=== PATIENT | male | born 1955 | race Caucasian/White ===

== ENCOUNTER 2017-08-29 06:30 | Inpatient (IN) | payer OTHER ==
[~2017-08-29] VITALS: Ht 167.6 cm; Wt 162.4 kg
[2017-08-29] VITALS (23 sets, daily range): BP systolic 81–173; BP diastolic 30–88
--- NOTE | 2017-08-29 06:30 | NUR ---
62Y/M PT. BIBA SOB/ ALTERED MENTAL STATUS X 0600 TODAY UPON ARRIVAL TO DIALYSIS CENTER THIS AM. PMH: ESRD,HTN, COPD, ANEMIA, DM. PT.RESPONDS TO VERBAL, EYE OPEN, UNABLE TO AMBULATE. GCS 9. RESPIRATIONS ON NON-REBREATHING O2 15 LPM, LABORED AND SHALLOW WITH ASSESSORY MUSCLE BREATHING, O2 SAT 92%, RR 32. BL LUNG COARSE. SKIN PALE, DIAPHORETIC. ABDOMEN SOFT, NON TENDER. ON F/C, URINE CLOUDY. VS, BP ELEVATED, DR. METZGER AT BED SIDE EVALUATING PT.
--- NOTE | 2017-08-29 06:30 | NUR ---
PT.HUGO TO ER BED 10
[2017-08-29 06:54] LABS: BASOPHILS # (AUTO) 0.1 K/uL (0.00-0.22); BASOPHILS % (AUTO) 0.6 % (0.0-2.0); EOSINOPHILS # (AUTO) 0.5 K/uL (0-0.4); HEMATOCRIT 27.5 % (36-52); HEMOGLOBIN 8.3 g/dL (12.0-18.0); LYMPHOCYTES # (AUTO) 2.2 K/uL (2.0-11.5); LYMPHOCYTES % (AUTO) 18.5 % (20.5-51.1); MEAN CORPUSCULAR HEMOGLOBIN 29 pg (27-31); MEAN CORPUSCULAR HGB CONC 30 g/dL (33-37); MEAN CORPUSCULAR VOLUME 95.8 fL (80-94); MONOCYTES # (AUTO) 0.5 K/uL (0.8-1.0); MONOCYTES % (AUTO) 4.4 % (1.7-9.3); NEUTROPHILS # (AUTO) 8.8 K/uL (1.8-7.7); NEUTROPHILS % (AUTO) 72.5 % (42.2-75.2); PLATELET COUNT (AUTO) 244 K/uL (140-450); RED BLOOD CELL COUNT(AUTO) 2.87 MIL/uL (4.20-6.10); RED CELL DISTRIBUTION WIDTH 17.9 % (11.6-13.7); WHITE BLOOD COUNT (AUTO) 12.1 K/uL (4.8-10.8)
--- NOTE | 2017-08-29 06:55 | NUR ---
ETOMIDATE 30 MG IVP PER ORDER
--- NOTE | 2017-08-29 06:57 | NUR ---
SUCCINYL 200 MG IVP PER ORDER
--- NOTE | 2017-08-29 06:58 | NUR ---
INTUBATED PT. ETT NO 8.0, DEPTH 22, BL LUNG EQUAL. RT. AT BEDSIDE CONNECT TO [employer] VENTILATOR.
[2017-08-29 07:11] LABS: PROTHROMBIN TIME 10.6 secs (10.8-13.4)
[2017-08-29 07:13] LABS: ALBUMIN 3.9 g/dL (3.4-5.0); ANION GAP 13.9 (8-16); CARBON DIOXIDE 35.1 mmol/L (21-32); TOTAL BILIRUBIN 0.5 mg/dL (0.0-1.0)
[2017-08-29] MEDS ORDERED: PROPOFOL 1000 MG/100 ML PREMIX 100 ML IV ONE (07:15)
[2017-08-29 07:16] LABS: CREATININE 10.6 mg/dL (0.7-1.3)
--- NOTE | 2017-08-29 07:20 | NUR ---
REPORT GIVEN TO JENNIFER DSOUZA. PT. STABLE AT THIS TIME.
[2017-08-29] MEDS ORDERED: NACL 0.9% 500 ML IV ONE (07:35)
[2017-08-29] MEDS ORDERED: PIPERACILLIN/TAZOBACTAM 3.375 GM in DEXTROSE 5% 50 ML IV ONE (07:35)
[2017-08-29] MEDS ORDERED: LEVOFLOXACIN 500 MG/D5W PREMIX 100 ML IV ONE (07:35)
--- NOTE | 2017-08-29 08:00 | NUR ---
[facility] ENTRY" REPORT RECEIVED BY JENNIFER ARAIZA . PT WAS ALREADY INTUBATED, RT AT BEDSIDE, R AC IV NOTED TO BE INFILTRATED, SKIN PINK AND WARM TO TOUCH, LS: CRACKLES BILATERALLY, JAYCE: EQUAL ROUND REACTIVE 2MM .NG TUBE INSERTED TO R NARE, PLACEMENT CONFIRMED BY 2 RN'S BY AUSCULTATION AND GASTRIC CONTENT OUTPUT. LAGOS CATHETER CHANGED AND URINE COLLECTED AND SENT. NEW IV ESTABLISHED R CHEST 22 G. PT. ON MONITOR W/ NSR W/ 1ST DEGREE AV BLOCK . L UPPER ARM SHUNT, POSITIVE BRUIT AND THRILL TO SHUNT, UPON REPORT IT WAS SAID THAT DIALYSIS WAS NOT GIVEN TODAY . ER MD AWARE. SAFETY PRECAUTIONS INITIATED, WILL CONTINUE TO MONITOR.
--- NOTE | 2017-08-29 08:00 | NUR ---
PER RT VENTILATION SETTING ARE THE FOLLOWING: PT. INTUBATED W/ CARESCAPE #8 AND 26CM LIP LINE, TIDAL VOLUME : 550, FI02: 50%, RATE : 12 , PEEP: 5. BILATERAL LS AUSCULTATED, PT. SAT: 99%, SYMETRICAL CHEST RISE AND FALL, SKIN IS PINK WARM TO TOUCH.
--- NOTE | 2017-08-29 08:10 | NUR ---
PROPOFOL INCREASED TO 10MCG/KG/MIN, PT FIGHTING VENT AND MOVING ARMS AND LEGS.
--- NOTE | 2017-08-29 08:15 | NUR ---
# 16 FR Marx catheter with ml utilizing sterile technique. Immediate return of ml urine noted. Bedside drainage bag placed below level of bladder. Urine sample collected and sent to lab. Pt tolerated procedure .
[2017-08-29] MEDS ORDERED: PIPERACILLIN/TAZOBACTAM 3.375 GM VIAL IV ONE (08:35)
[2017-08-29 08:42] LABS: APPEARANCE,URINE TURBID (CLEAR); BILIRUBIN,URINE NEGATIVE (NEGATIVE); BLOOD, URINE 2+ (NEGATIVE); COLOR,URINE YELLOW (YELLOW); LEUKOCYTE ESTERASE ,URINE 3+ (NEGATIVE); NITRITE, URINE NEGATIVE (NEGATIVE); UGLUCOSE NEGATIVE (NEGATIVE)
[2017-08-29 08:45] LABS: RBC,URINE 0-5 (RARE) /HPF (0-5)
[2017-08-29 08:46] LABS: WBC,URINE 20-60 /HPF (0-5)
--- NOTE | 2017-08-29 09:10 | NUR ---
PT. IN ROOM RESTING , RR EVEN AND UNLABORED, BED IN LOWEST POSITION. BED RAILS X 2 . WILL CONTINUE TO MONITOR.
--- NOTE | 2017-08-29 09:27 | NUR ---
0700 RECIVED PT FROM EMT BEING BAGGED AT 100% NRB PT SHORT OF BREATH ER DECIDED TO INTUBATE PT INTUBATED WITH 8.O ETT 24 AT THE GUM LINE CHEST X RAY DONE ETT PUSHED IN TO 26 DR BUSTOS AWARE BREATH SOUNDS PRESENT BILAT FAIRLY CLEAR PT PLACED ON VENT WITH SETTINGS CHARTED ABG DRAWN AND SHOWN TO DR BUSTOS NO VENT CHANGES ORDERED SPUTUNM OBTAINED AND SENT TO LAB VENT PLUGGED INTO RED OUTLER AMBU BAG AT BEDSIDE WILL CONTINUE TO MONITOR PT ON VENT Addendum: 08/29/17 at 0941 by Pj Shelton RT RECIVED PT AT 0635 PLACED ON VENT AT 0700
--- NOTE | 2017-08-29 09:30 | NUR ---
PROPOFOL INCREASED TO 15MCG/KG/MIN, PT FIGHTING VENT AND MOVING ARMS AND LEGS.
[2017-08-29] MEDS ORDERED: NACL 0.9% 1,000 ML IV SCH (09:36)
[2017-08-29] MEDS ORDERED: ACETAMINOPHEN 325 MG TAB PO PRN (09:40)
[2017-08-29] MEDS ORDERED: ONDANSETRON 4 MG/2 ML VIAL IVP PRN (09:40)
--- NOTE | 2017-08-29 09:45 | NUR ---
PROPOFOL INCREASED TO 20MCG/KG/MIN, PT FIGHTING VENT AND MOVING ARMS AND LEGS.
--- NOTE | 2017-08-29 10:00 | NUR ---
PROPOFOL INCREASED TO 25MCG/KG/MIN, PT FIGHTING VENT AND MOVING ARMS AND LEGS.
--- NOTE | 2017-08-29 10:15 | NUR ---
PROPOFOL INCREASED TO 30MCG/KG/MIN, PT FIGHTING VENT AND MOVING ARMS AND LEGS.
--- NOTE | 2017-08-29 10:32 | NUR ---
Patient will be admitted to care of DR. KOVACS . Admited to ICU . Will go to room #5 . Belongings list completed. Report to JENNIFER MARIANO .
--- NOTE | 2017-08-29 10:33 | NUR ---
pt transfered to icu via ambu bag then placed back on vent with settings as charted no ill effects noted
--- NOTE | 2017-08-29 10:35 | NUR ---
PATIENT WAS TRANSFERRED FROM ED VIA GURNEY AND RECEIVED BEDSIDE REPORT FROM JENNIFER WHITE. PATIENT IS NONRESPONSIVE BUT AROUSE TO DEEP STIMULI AT THIS TIME. SKIN COOL TO TOUCH AND PALE NOTED. BILATERAL UPPER EXTREMITY NON PITTING EDEMA. ETT TO VENT AND SETTING AT FIO2 50, TV 550, RATE 12, PEEP 5. RT AT BEDSIDE. NGT IN PLACED TO RT NARE. LAGOS CATHETER DRAINING CLOUDY LIGHT ANUSHA COLOR URINE WITH SEDIMENT NOTED. PERIPHERAL IV LINE ON RT ANTECUBITAL AND LEFT CHEST. PROPOFOL RUNNING AT 30MCG/KG/MIN AT THIS TIME. SAFETY PRECAUTION IMPLEMENTED. BED IN LOW POSITION. WILL CONTINUE TO MONITOR AND FOLLOW UP ON ORDERS. Addendum: 08/29/17 at 1114 by William Peterson RN SINUS BRADYCARDIA WITH FIRST DEGREE AV BLOCK ON THE MONITOR.
--- NOTE | 2017-08-29 10:40 | NUR ---
AV SHUNT TO LEFT UPPER ARM IN PLACE AND BRUIT/THRILL NOTED.
--- NOTE | 2017-08-29 11:35 | NUR ---
PATIENT WAS TRANSFERRED FROM ED WITH PROPOFOL DRIP HOWEVER THERE IS NO ORDER FOR PROPOFOL. BLOOD PRESSURE IS DECREASING AND NOTED 81/55. PAGED DR. KOVACS AND DR. GARZA.
--- NOTE | 2017-08-29 11:45 | NUR ---
DR. GARZA CALLED BACK AND NOTIFIED OF PATIENT'S CONDITION. DR. GARZA STATED THAT DC PROPOFOL AT THIS TIME AND WILL CONTINUE TO MONITOR.
[2017-08-29] MEDS ORDERED: BLOOD GLUCOSE MONITORING 1 DEV DEV FS SCH ×2 (12:00→18:00)
--- NOTE | 2017-08-29 12:10 | NUR ---
DR. GARZA IN TO SEE PATIENT. WILL FOLLOW UP ON ORDERS.
[2017-08-29] MEDS ORDERED: VANCOMYCIN PER PHARMACY MC PRN (12:15)
[2017-08-29] MEDS ORDERED: INSULIN LISPRO SLIDING SCALE 100 UNITS/ML VIAL SUBQ PRN (12:30)
[2017-08-29] MEDS ORDERED: DEXTROSE 50% 50 ML SYR IVP PRN (12:30)
[2017-08-29] MEDS ORDERED: MIDAZOLAM 2 MG/2 ML VIAL IV PRN (12:40)
[2017-08-29] MEDS: LINEZOLID 600MG PREMIX 300 ML IV SCH (12:54)
[2017-08-29] MEDS ORDERED: PIPER/TAZO 3.375GM/D5W PREMIX 50 ML IV SCH (13:00)
--- NOTE | 2017-08-29 13:00 | NUR ---
FIO2 TITRATED TO 40%. PT NOT SOB AND NOT IN RESPIRATORY DISTRESS. PT IS NON RESPONSIVE. NURSE AWARE OF PT STATUS.
--- NOTE | 2017-08-29 13:00 | NUR ---
BLOOD SUGAR 242 AND PATIENT IS ON NPO. CLARIFIED THE ORDER OF INSULIN SLIDING SCALE WITH DR. GARZA AND ADMINISTERED INSULIN 4UNIT PER DR. GARZA ORDER. WILL CONTINUE TO MONITOR.
--- NOTE | 2017-08-29 13:07 | NUR ---
DR. KOVACS IN TO SEE PATIENT AND AWARE OF NO URINE OUTPUT SINCE TRANSFERRED FROM ED. WILL FOLLOW UP ON ORDERS.
[2017-08-29] MEDS ORDERED: ALBUMIN HUMAN 25% 50 ML IV SCH (13:11)
[2017-08-29] MEDS: DEXT 5% /NACL 0.9% 1,000 ML IV SCH (13:41)
--- NOTE | 2017-08-29 15:00 | NUR ---
PAGED DR. SANCHEZ AND LEFT MESSAGE OF THE CONSULTATION ORDER. WAITING FOR CALL BACK.
[2017-08-29] MEDS: MORPHINE SULFATE 4 MG/ML SYR IVP PRN (15:12)
--- NOTE | 2017-08-29 15:14 | NUR ---
WOUND CARE NURSE CAME IN TO ASSESS SKIN FOR BENNETT SCORE BELOW 18.
--- NOTE | 2017-08-29 15:20 | NUR ---
PATIENT IS AWAKE AND ABLE TO FOLLOW SIMPLE COMMANDS. C/O NECK PAIN 5/10 AND ADMINISTERED PAIN MEDICATION ORDERED. WILL CONTINUE TO MONITOR CLOSELY.
--- NOTE | 2017-08-29 15:25 | NUR ---
WOUND CARE EVALUATION NOTES: REASON FOR EVALUATION:LOW BENNETT SCORE SKIN ASSESSMENT DONE ON THIS 62 Y/O MALE PATIENT FROM DIALYSIS FACILITY TO [facility], WITH INITIAL DIAGNOSIS OF RESPIRATORY DISTRESS. PAST MEDICAL HISTORY INCLUDE COPD, MORBID OBESITY, OA, HYPERTENSION AND ESRD ON HD. ALL ABOVE INFORMATION WAS OBTAINED FROM THE ADMISSION H&P. PT IS INTUBATED, NON-VERBAL WITH EYES OPEN. LABS ARE WBC 12.1, H/H 8.3/27.5, GLUCOSE 153, ALBUMIN 3.9. SKIN WARM TO TOUCH WNL, EDEMA TO BILATERAL UPPER EXTREMITIES, BLE NO EDEMA, LONG THICKENED TOENAILS, NO HAIR GROWTH AND BILATERAL PEDAL PULSES PRESENT. NEEDS ASSISTANCE IN TURNING. PLAN OF CARE AND PRESSURE PREVENTIVE MEASURES DISCUSSED WITH PT AND PRIMARY NURSE. PT UNABLE TO VERBALIZE AT THIS TIME. WILL REINFORCE TEACHING. INTEGUMENTARY: -MULTIPLE PIN POINTS SCABS TO UPPER ARMS, CHEST AND ABDOMEN AREAS. -INTERTRIGO LOWER ABDOMEN FOLD AND R/L GROINS -LEFT ARM AV FISTULA RECOMMENDATIONS: -APPLY BODY LOTION TO DRY SCABS AREAS -APPLY INTER DRY CLOTH TO LOWER ABDOMEN FOLD AND R/L GROINS -TURN AND REPOSITION PATIENT Q2H TO LEFT AND RIGHT SIDE ONLY TO OFFLOAD SACRALCOCCYX -ASSESS AND MONITOR SKIN CONDITION DURING POSITION CHANGE, PLEASE PAY ATTENTION TO SACRALCOCCYX AND BILATERAL HEELS -OFFLOAD BILATERAL HEELS BY PLACING PILLOWS UNDER CALVES AT ALL TIMES, UNLESS OTHERWISE CONTRAINDICATED -PRESSURE REDISTRIBUTION SURFACE THERAPY -KEEP SKIN CLEAN AND DRY AT ALL TIMES. -APPLY BODY TO DRY SKIN AREAS QD COMORBIDITIES RELATED TO SKIN BREAKS: -MORBID OBESITY -DECREASE OF MOBILITY -ESRD WITH HD -HOB ELEVATED THE MAJORITY OF THE DAY FOR MEDICAL CONDITION RECOMMENDATIONS DISCUSSED WITH PRIMARY RN WILL FOLLOW UP PATIENT Q 7 -10 DAYS AND PRN. PLEASE CONTACT WOUND CARE NURSE FOR ANY QUESTION OR CHANGES IN WOUND CONDITION
--- NOTE | 2017-08-29 15:35 | NUR ---
VENT CHECK COMPLETED. PT SUCTIONED OBTAINED SMALL AMOUNT OF THICK PALE YELLOW SECRETIONS, AIRWAY IS PATENT AND ETT REMAINS SECURE. PT OPENS HIS EYES AND IS ABLE TO FOLLOW SIMPLE COMMANDS LIKE MAKE A FIST OR SQUEEZE MY HAND. PT NOT DEMONSTRATING ANY SIGNS/SYMPTOMS OF RESPIRATORY DISTRESS OR SOB. WILL CONTINUE TO MONITOR.
--- NOTE | 2017-08-29 15:45 | NUR ---
DR. HOANG WAS NOTIFIED OF THE CONSULTATION ORDER AND DR. HOANG STATED THAT HE WILL BE IN TO SEE PATIENT LATER.
[2017-08-29] MEDS ORDERED: INTERDRY CLOTH TP SCH (15:50)
--- NOTE | 2017-08-29 16:00 | NUR ---
Andres CARDOZA WAS NOTIFIED OF THE CONSULTATION ORDER.
--- NOTE | 2017-08-29 16:12 | NUR ---
DR. SANCHEZ IN TO SEE PATIENT. WILL FOLLOW UP ON ORDERS.
[2017-08-29] MEDS ORDERED: EPOETIN ALFA 10,000 UNITS/ML VIAL SUBQ SCH (16:31)
[2017-08-29] MEDS: BLOOD GLUCOSE MONITORING 1 DEV DEV FS SCH ×2 (16:33→20:19)
--- NOTE | 2017-08-29 16:39 | NUR ---
CALLED SAGAR VANCE,BROTHER OF THE PATIENT AND OBTAINED THE CONSENT OF HEMODIALYSIS VIA PHONE.
--- NOTE | 2017-08-29 16:48 | NUR ---
DR. KIMBROUGH IN TO SEE PATIENT. WILL FOLLOW UP ON ORDERS.
[2017-08-29] MEDS: AZITHROMYCIN 500 MG in DEXTROSE 5% 250 ML IV SCH (16:54)
--- NOTE | 2017-08-29 17:01 | NUR ---
PT REMAINS ON DOCUMENTED VENT SETTINGS. VENT ALARMS REMAIN ON AND FUNCTIONING. ETT REMAINS SECURE WITH A PATENT AIRWAY. THERE IS NO BITING OR KINKING OF ETT. PT NOT IN RESPIRATORY DISTRESS OR SOB AT THIS TIME.
--- NOTE | 2017-08-29 18:40 | NUR ---
DIALYSIS NURSE AT BEDSIDE AT THIS TIME
[2017-08-29] MEDS ORDERED: ALBUMIN HUMAN 25% 100 ML IV ONE (19:00)
--- NOTE | 2017-08-29 19:12 | NUR ---
REPORT GIVEN TO JENNIFER MALONEY TUBE DRAWER AT BEDSIDE. PATIENT IS ON HEMODIALYSIS AND STABLE AT THIS TIME.
[2017-08-29] MEDS ORDERED: ALBUMIN HUMAN 25% 200 ML IV ONE (19:20)
--- NOTE | 2017-08-29 19:20 | NUR ---
RECEIVED BEDSIDE REPORT FROM GARCÍA.RN. PT IS LETHARGIC, RESPONSIVE TO PAIN STIMULI. ETT TO VENT WITH VENT SETTING A/C 12, FIO2 40%, VT 550, PEEP 5 NOTED. BILATERAL LUNG SOUNDS CRACKLES. NGT TO RIGHT NARES, PLACEMENT CHECKED. LAGOS CATH IN PLACE DRAINING CLEAR YELLOW COLOR NOTED. PERIPHERAL IV LINE TO RIGHT AC AND LEFT CHEST. D5NS RUNNING AT 30ML/HR. SR WITH BUNDLE BRANCH BLOCK ON THE FIELD CONTRACTOR. HR 61, BP 113/63 NOTED. HOB ELEVATED 30 DEGREE. BED IN LOW POSITION. CALL LIGHT WITHIN REACH. WILL CONTINUE TO MONITOR.
[2017-08-29] MEDS: PIPER/TAZO 2.25GM/D5W PREMIX 50 ML IV SCH (20:19)
--- NOTE | 2017-08-29 20:30 | NUR ---
DR. HOANG IN BEDSIDE TO CHECK THE PT. WILL FOLLOW THE ORDER.
--- NOTE | 2017-08-29 20:30 | NUR ---
BS CHECKED 112 NOTED. PT IS ON HEMODIALYSIS AT THIS TIME. HEPARIN IS HOLD AT THIS TIME, WILL GIVE AFTER DIALYSIS.
[2017-08-29] MEDS ORDERED: LINEZOLID 600MG PREMIX 300 ML IV SCH (21:00)
--- NOTE | 2017-08-29 22:45 | NUR ---
HEMODIALYSIS DONE. REMOVED 2L OF FLUID, ADMINISTER 2 VIAL OF ALBUMIN. PT TOLERATED WELL. BP 96/42. HR 58 NOTED. WILL CONTINUE TO MONITOR.
--- NOTE | 2017-08-29 22:50 | NUR ---
ADMINISTERED HEPARIN 5000 UNITS AT RIGHT UPPER ARM AT THIS TIME. Addendum: 08/30/17 at 0713 by Molly Packer RN ERROR; MEDICATION NOT GIVEN
--- NOTE | 2017-08-29 22:51 | NUR ---
HEPARIN NOT ADMINISTERED, NOTED PT TO HAVE BLEEDING COMING FROM NOSE AND MOUTH.
--- NOTE | 2017-08-29 23:30 | NUR ---
PROVIDED ORAL CARE WITH SUCTION, PT OPENED HIS EYES, ABLE TO FOLLOW SIMPLE COMMANDS. NO ACUTE DISTRESS NOTED. BP 113/58. SB ON THE MONITOR, HR 58 NOTED. WILL CONTINUE TO MONITOR.
[2017-08-30] VITALS (24 sets, daily range): BP systolic 112–150; BP diastolic 30–74
[2017-08-30] MEDS: LINEZOLID 600MG PREMIX 300 ML IV SCH ×2 (00:30→13:43)
--- NOTE | 2017-08-30 00:35 | NUR ---
ADMINISTERED IV ABX, NO REACTION NOTED, PT TOLERATED WELL. WILL CONTINUE TO MONITOR.
--- NOTE | 2017-08-30 02:00 | NUR ---
PT IS LETHARGIC, RESPONSIVE TO LIGHT PAIN. NO ACUTE DISTRESS NOTED. NO FIGHT WITH ET TUBE. HR IS BETWEEN 55 TO 65 NOTED. BP 112/30 NOTED WILL CONTINUE TO MONITOR.
--- NOTE | 2017-08-30 03:30 | NUR ---
PT IS LETHARGIC, RESPONSIVE TO LIGHT PAIN. TOLERATED WELL TO ETT TO VENT. NO ACUTE DISTRESS NOTED. HR 60, BP 103/33 NOTED. SR WITH BBB NOTED ON THE CIRCULATING PROCESS INSPECTOR. WILL CONTINUE TO MONITOR.
[2017-08-30] MEDS ORDERED: PIPERACILLIN/TAZOBACTAM 2.25 GM VIAL IV ONE (05:04)
[2017-08-30] MEDS: PIPER/TAZO 2.25GM/D5W PREMIX 50 ML IV SCH ×3 (05:13→21:35)
--- NOTE | 2017-08-30 05:15 | NUR ---
ADMINISTERED IV ABX ORDERED, TOLERATED WELL, NO REACTION NOTED. PT IS LETHARGIC, RESPONSIVE TO LIGHT PAIN. VSS. NO ACUTE DISTRESS NOTED. WILL CONTINUE TO MONITOR.
[2017-08-30 06:43] LABS: BASOPHILS % (AUTO) 0.2 % (0.0-2.0); EOSINOPHILS # (AUTO) 0.2 K/uL (0-0.4); EOSINOPHILS % (AUTO) 2.3 % (0.0-4.0); HEMATOCRIT 21.2 % (36-52); LYMPHOCYTES # (AUTO) 0.7 K/uL (2.0-11.5); LYMPHOCYTES % (AUTO) 9.7 % (20.5-51.1); MEAN CORPUSCULAR HEMOGLOBIN 29 pg (27-31); MEAN CORPUSCULAR HGB CONC 31 g/dL (33-37); MEAN CORPUSCULAR VOLUME 93.6 fL (80-94); MONOCYTES # (AUTO) 0.3 K/uL (0.8-1.0); MONOCYTES % (AUTO) 4.5 % (1.7-9.3); NEUTROPHILS # (AUTO) 5.8 K/uL (1.8-7.7); NEUTROPHILS % (AUTO) 83.3 % (42.2-75.2); PLATELET COUNT (AUTO) 141 K/uL (140-450); RED BLOOD CELL COUNT(AUTO) 2.26 MIL/uL (4.20-6.10); WHITE BLOOD COUNT (AUTO) 6.9 K/uL (4.8-10.8)
--- NOTE | 2017-08-30 06:47 | NUR ---
PATIENT HAS BEEN SCREENED AND CATEGORIZED HIGH NUTRITION RISK. PATIENT WILL BE SEEN WITHIN 1-2 DAYS OF ADMISSION. 08/30/17-08/31/17 KIMBERLY SCHREIBER MS, RDN
--- NOTE | 2017-08-30 07:05 | NUR ---
RECEIVED PT ON CARESCAPE ON A/C 12 VT 550 PEEP5 FIO2 40 ALARMS ARE ON AND AUDIBLE PT IN HF ASLEEP BS DIMINISHED PTS ET TUBE IS SECURE 26 CM TEETH ANCHOR FAST IN PLACE BMV HOB VENT PLUGGED INTO RED OUTLET
[2017-08-30 07:12] LABS: ALBUMIN 3.4 g/dL (3.4-5.0); ANION GAP 9.2 (8-16); CARBON DIOXIDE 34.7 mmol/L (21-32); POTASSIUM 3.9 mmol/L (3.5-5.1); TOTAL BILIRUBIN 0.5 mg/dL (0.0-1.0)
[2017-08-30 07:13] LABS: HEMOGLOBIN 6.6 g/dL (12.0-18.0)
[2017-08-30 07:14] LABS: CREATININE 6.7 mg/dL (0.7-1.3)
--- NOTE | 2017-08-30 07:15 | NUR ---
RECEIVE THE CRITICAL VALUE FROM LAB [facility] 6.6 , DR. KOVACS NOTIFIED . ORDERED TO GIVE 2 UNITS OF RED PACK CELL TRANSFUSION.
--- NOTE | 2017-08-30 07:25 | NUR ---
REPORT GIVEN TO RATANA. GARCIA FOR CONTINUITY CARE.
--- NOTE | 2017-08-30 07:29 | NUR ---
PHONE CALL TO DR KOVACS; MADE AWARE THAT HEPARIN WAS NOT GIVEN AT 2100 DOSE; NOTED BLEEDING FROM NOSE AND MOUTH.ALSO READ BACK CRITICAL LAB RESULT HEMOGLOBIN 6.6
--- NOTE | 2017-08-30 07:30 | NUR ---
RECEIVED REPORT FROM DIGITAL X RAY SERVICE ENGINEER RN. PT IS LETHARGIC, RESPONSIVE TO LIGHT STIMULI. SINUS RHYTHM WITH BUNDLE BRANCH BLOCKS ON MONITOR. PT IS ETT TO VENT W/ SETTINGS: AC 12, FIO2 40%, VT 550, PEEP 5. BILATERAL LUNGS SOUND COARSE. NGT TO RIGHT NARE IN PLACE, PLACEMENT CONFIRMED. BOWEL SOUNDS ACTIVE. PERIPHERAL IV G22 TO LEFT CHEST PATENT AND INTACT, RUNNING D5NS AT 30 ML/HR. ANOTHER PERIPHERAL IV G20 TO RIGHT ANTECUBITAL ASYMPTOMATIC, PATENT AND INTACT, AND SALINE LOCKED. DIALYSIS ACCESS AV SHUNT TO LEFT UPPER ARM IN PLACE. LAGOS CATH IN PLACE DRAINING URINE TO GRAVITY DRAINAGE BAG. HOB 30 DEGREES, BED IN LOWEST POSITION AND CALL LIGHT WITHIN REACH. WILL CONTINUE TO MONITOR.
[2017-08-30] MEDS: BLOOD GLUCOSE MONITORING 1 DEV DEV FS SCH ×4 (07:32→21:39)
--- NOTE | 2017-08-30 07:36 | NUR ---
TELEPHONE CONSENT OBTAINED FROM BROTHER, SAGAR VANCE, FOR BLOOD TRANSFUSION.
--- NOTE | 2017-08-30 07:40 | NUR ---
BLOOD TRANSFUSION CONSENT OBTAIN FROM SAGAR VANCE THE PATIENT BROTHER.
--- NOTE | 2017-08-30 09:47 | NUR ---
08/30/17 RD INITIAL ASSESSMENT COMPLETED PLEASE REFER TO NUTRITION ASSESSMENT UNDER CARE ACTIVITY FOR ESTIMATED NUTRITIONAL NEEDS. RD RECOMMENDATIONS: 1. IF/WHEN MEDICALLY APPROPRIATE, CONSIDER INITIATING ENTERAL FEEDING OF NOVASOURCE RENAL TO RUN AT 45 ML/HR TO PROVIDE 1080 ML, 2160 KCAL, 97.2 GM PROTEIN, AND 774 ML FREE WATER. 2. IF/WHEN MEDICALLY APPROPRIATE, CONSIDER INITIATING WATER FLUSHES OF 150 ML Q4H TO PROVIDE 900 ML. 3. CONSULT RDN PRN. 4. RD WILL F/U 2-3 DAYS; HIGH RISK. KIMBERLY SCHREIBER, , RDN
--- NOTE | 2017-08-30 10:45 | NUR ---
PT SEEN BY DR. GARZA. WILL FOLLOW UP ON ORDERS.
--- NOTE | 2017-08-30 11:10 | NUR ---
FIRST UNIT OF BLOOD TRANSFUSION STARTED. VITAL SIGNS STABLE. NO S/SX OF DISTRESS NOTED AT THIS TIME. WILL CONTINUE TO MONITOR.
--- NOTE | 2017-08-30 13:10 | NUR ---
TRANSFUSION OF 1ST UNIT PRBC COMPLETED. NO ADVERSE REACTION NOTED. VITAL SIGNS STABLE.
[2017-08-30] MEDS: DEXT 5% /NACL 0.9% 1,000 ML IV SCH (13:18)
--- NOTE | 2017-08-30 13:25 | NUR ---
SECOND UNIT OF PRBC TRANSFUSION STARTED. VSS. PT IS LETHARGIC, FOLLOWS SIMPLE COMMANDS. WILL CONTINUE TO MONITOR.
--- NOTE | 2017-08-30 14:40 | NUR ---
RECEIVED A CALL FROM DR. SANCHEZ. UPDATES GIVEN ON PT'S CONDITION. NO NEW ORDER AT THIS TIME.
--- NOTE | 2017-08-30 15:25 | NUR ---
SECOND UNIT OF BLOOD TRANSFUSION COMPLETED. PT TOLERATED WELL. NO S/SX OF ACUTE DISTRESS AT THIS TIME. VITAL SIGNS STABLE.
[2017-08-30] MEDS: AZITHROMYCIN 500 MG in DEXTROSE 5% 250 ML IV SCH (16:45)
--- NOTE | 2017-08-30 17:07 | NUR ---
ROBINSON BARBER FROM [facility] MADE AWARE OF PT'S SCHEDULED DIALYSIS FOR 08/31/17 MORNING.
[2017-08-30 17:42] LABS: BASOPHILS % (AUTO) 0.4 % (0.0-2.0); EOSINOPHILS # (AUTO) 0.2 K/uL (0-0.4); EOSINOPHILS % (AUTO) 2.8 % (0.0-4.0); HEMATOCRIT 26.5 % (36-52); HEMOGLOBIN 8.4 g/dL (12.0-18.0); LYMPHOCYTES # (AUTO) 1.3 K/uL (2.0-11.5); LYMPHOCYTES % (AUTO) 17.8 % (20.5-51.1); MEAN CORPUSCULAR HEMOGLOBIN 30 pg (27-31); MEAN CORPUSCULAR HGB CONC 32 g/dL (33-37); MEAN CORPUSCULAR VOLUME 93.5 fL (80-94); MONOCYTES # (AUTO) 0.5 K/uL (0.8-1.0); MONOCYTES % (AUTO) 6.7 % (1.7-9.3); NEUTROPHILS # (AUTO) 5.1 K/uL (1.8-7.7); NEUTROPHILS % (AUTO) 72.3 % (42.2-75.2); PLATELET COUNT (AUTO) 148 K/uL (140-450); RED BLOOD CELL COUNT(AUTO) 2.83 MIL/uL (4.20-6.10); RED CELL DISTRIBUTION WIDTH 18.1 % (11.6-13.7)
--- NOTE | 2017-08-30 18:00 | NUR ---
PT SEEN AND EXAMINED BY DR. KOVACS. WILL FOLLOW UP ON ORDERS.
--- NOTE | 2017-08-30 19:20 | NUR ---
REPORT GIVEN TO BRASS CLEANER RN AT BEDSIDE FOR CONTINUITY OF CARE. PT IS IN STABLE CONDITION.
--- NOTE | 2017-08-30 19:30 | NUR ---
RECEIVED PT FROM DAY NURSE. NO ACUTE DISTRESS NOTED. WILL CONTINUE TO MONITOR.
--- NOTE | 2017-08-30 19:41 | NUR ---
RECEIVED PT STABLE ON VENT SUPPORT AT DOCUMENTED SETTTINGS, SUCTIONED SMALL AMOUNT OF CLEAR YELLOW THIN SECRETIONS, NO RESP DISTRESS OR SOB NOTED AT THIS TIME, PT ABLE AWAKE ALERT AND ABLE TO FOLLOW COMMANDS, 8.0 ETT SECURED AT 26 CM AT THE TEETH/GUM, ALARMS SET AND AUDIBLE, AMBU BAG AT BEDSIDE, VENT PLUGGED INTO RED OUTLET, WILL CONT TO MONITOR.
--- NOTE | 2017-08-30 19:44 | NUR ---
PT ASLEEP, AROUSABLE, FOLLOWING SIMPLE COMMANDS. ABLE TO TRACK EYES; MOVING ALL EXTREMITIES. LUNGS RHONCHI TO AUSCULTATION, COUGH PRESENT ETT TO VENT 8.0 26 @ LIP. TV 550 FIO2 30% R 12 PEEP 5. SR WITH BBB 60S. +2 EDEMA TO HANDS AND FEET NOTED. NG TUBE TO R NARES CLAMPED @ THIS TIME, POSITIVE PLACEMENT. LAGOS CATH IN PLACE; PT OLIGURIC HD SHUNT POSITIVE FOR BRUIT AND THRILL TO L UPPER ARM. NO S/S OF ACUTE DISTRESS NOTED. NO BLEEDING NOTED. WILL CONTINUE TO MONITOR.
--- NOTE | 2017-08-30 20:38 | NUR ---
PT SELF EXTUBATED HIMSELF; RT WAS PAGED. PT AAOX1 FOLLOWING SIMPLE COMMANDS. PT STATED, " I DID NOT WANT THE TUBE IN ANYMORE." 2039 RT @ BEDSIDE PLACED O2 VIA NASAL CANNULA. PT HAS NO S/S OF ACUTE RESPIRATORY DISTRESS. PAGED. WILL CONTINUE TO OBSERVE.
--- NOTE | 2017-08-30 20:40 | NUR ---
CALLED TO BEDSIDE, PT EXTUBATED HIMSELF, AMBU BAG PT WITH 100% INITIALLY, THEN PLACED PT ON 4LPM NC, TOLERATING WELL, HR 73 02 SAT 98% BP 114/64, AWAKE/ALERT AND FOLLOWING COMMANDS, NO RESP DISTRESS OR SOB NOTED AT THIS TIME, WILL CONTINUE TO MONITOR.
--- NOTE | 2017-08-30 21:20 | NUR ---
PT TOLERATING O2 VIA NASAL CANNULA, INSTRUCTED PT ON HOW TO USE SUCTION VIA YANKEUR. DR. DOYLE WAS UPDATED REGARDING PATIENT SELF EXTUBATION. MD ORDERED ABG NOW AND CXR IN AM. WILL CONTINUE TO MONITOR.
--- NOTE | 2017-08-30 22:25 | NUR ---
NOTIFIED DR. DOYLE ABOUT CRITICAL ABG RESULT OF PO2 55 MMHG. PT PLACED ON OXYMYZER BY RT@ 8L NO S/ SOF RESPIRATORY DISTRESS NOTED. MD AWARE. NO NEW ORDERS GIVEN. WILL CONTINUE TO MONITOR.
--- NOTE | 2017-08-30 23:00 | NUR ---
PT RESTING COMFORTABLY WATCHING TELEVISION; NO S/S OF ACUTE RESPIRATORY DISTRESS NOTED. PT TOLERATING O2 VIA OXYMYZER. NO OTHER ACUTE DISTRESS NOTED. WILL CONTINUE MONITOR.
[2017-08-31] VITALS (10 sets, daily range): BP systolic 105–142; BP diastolic 47–85
[2017-08-31] MEDS: LINEZOLID 600MG PREMIX 300 ML IV SCH ×2 (00:04→13:05)
--- NOTE | 2017-08-31 01:00 | NUR ---
PT COMFORTABLE IN BED, ON OXYMYZER TOLERATING WELL. NO S/S OF ACUTE RESPIRATORY DISTRESS. WILL CONTINUE TO OBSERVE.
[2017-08-31] MEDS: PIPER/TAZO 2.25GM/D5W PREMIX 50 ML IV SCH ×2 (04:22→12:10)
--- NOTE | 2017-08-31 05:44 | NUR ---
RECEIVED PT FROM MIMA RODRIGUEZ, PT IS ALERT AWAKE X3, PT ON O2 VIA N/C AT 4 LPM TOLERATED WELL, PT IS S/P EXTUBATED HIM SELF AT 20:38 08/30/17 AND START WITH O2 VIA N/C, PT TOLERATED WELL, NO S/S OF RESP DISTRESS OR SOB. HOB UP 30-45 DEGREE ALL THE TIMES, PT HAVE STRONG COUGH. HAILEY LUNGS SOUND RHONCHI. EDEMA NOTED TO BUE/BLE, PT HAS HD SHUNT TO LEFT UPPER ARM WITH POSITIVE TRILL AND BRUIT. NGT TO RIGHT NARES, NGT CLAMP AT THIS TIME. NPO AT THIS TIME. BUE/BLE EDEMA +2. CHEST X-RAY FOR S/P SELF EXTUBATION DONE.RESULT TO FOLLOW. F/C IN PLACE WITH YELLOW URINE. NO BM AT THIS TIME. KEPT CLEAN AND DRY. CALL LIGHT IN REACHJ. Addendum: 08/31/17 at 0630 by Radha Constantino RN O2 AT 4 LM VIA OXYMIXER.
[2017-08-31] MEDS: BLOOD GLUCOSE MONITORING 1 DEV DEV FS SCH ×4 (07:09→20:07)
[2017-08-31 07:21] LABS: RED CELL DISTRIBUTION WIDTH 18.1 % (11.6-13.7)
--- NOTE | 2017-08-31 07:24 | NUR ---
REPORT GIVEN TO AM SHIFT. PT IS STABLE AT THIS TIME. BLOOD SUGAR IS 125, NO COVERAGE NEEDED.
[2017-08-31 07:26] LABS: HEMATOCRIT 24.6 % (36-52); MEAN CORPUSCULAR HEMOGLOBIN 30 pg (27-31); MEAN CORPUSCULAR HGB CONC 32 g/dL (33-37); MEAN CORPUSCULAR VOLUME 92.5 fL (80-94); PLATELET COUNT (AUTO) 165 K/uL (140-450); RED BLOOD CELL COUNT(AUTO) 2.66 MIL/uL (4.20-6.10); WHITE BLOOD COUNT (AUTO) 9.8 K/uL (4.8-10.8)
--- NOTE | 2017-08-31 07:30 | NUR ---
RECEIVED BEDSIDE REPORT FROM NIGHT NURSE. PT IS AWAKE, ALERT, FOLLOWS COMMANDS AND ABLE TO MAKE NEEDS KNOWN. SINUS RHYTHM WITH BUNDLE BRANCH BLOCK ON MONITOR. PT IS IN OXYMIZER AT 6 L/MIN, S/P EXTUBATION BY SELF. BILATERAL LUNGS SOUND DIMINISHED. NGT TO RIGHT NARE IN PLACE, PLACEMENT CHECKED. BOWEL SOUNDS HYPOACTIVE. ABDOMEN ROUND, SOFT, NONTENDER. DIALYSIS ACCESS TO LEFT UPPER ARM IN PLACE. PERIPHERAL IV G20 TO RIGHT ANTECUBITAL ASYMPTOMATIC, PATENT, INTACT, AND SALINE LOCKED. PERIPHERAL IV G22 TO LEFT CHEST PATENT AND INTACT, RECEIVING D5NS AT 30 ML/HR. LAGOS CATH IN PLACE. SKIN IS DRY AND WARM TO TOUCH. NO DISTRESS NOTED. PT IS AFEBRILE. HOB 30 DEGREES, BED IN LOWEST POSITION AND CALL LIGHT WITHIN REACH. WILL CONTINUE TO MONITOR.
[2017-08-31] MEDS: MORPHINE SULFATE 4 MG/ML SYR IVP PRN ×2 (07:31→17:46)
[2017-08-31 07:49] LABS: ALBUMIN 3.1 g/dL (3.4-5.0); ANION GAP 15.3 (8-16); CARBON DIOXIDE 29.4 mmol/L (21-32); POTASSIUM 3.7 mmol/L (3.5-5.1); TOTAL BILIRUBIN 0.8 mg/dL (0.0-1.0)
--- NOTE | 2017-08-31 07:53 | NUR ---
HEMODIALYSIS STARTED. VITAL SIGNS STABLE. PT IS AWAKE AND ALERT, ABLE TO MAKE NEEDS KNOWN. WILL CONTINUE TO MONITOR.
[2017-08-31 07:58] LABS: CREATININE 8.5 mg/dL (0.7-1.3)
[2017-08-31 08:33] LABS: BASOPHILS % (MANUAL) 0 % (0-2); EOSINOPHILS % (MANUAL) 3 % (0-4); LYMPHOCYTES % (MANUAL) 21 % (20-46); MONOCYTES % (MANUAL) 4 % (5-12)
[2017-08-31] MEDS: PANTOPRAZOLE 40 MG INJ VIAL IVP SCH (09:05)
--- NOTE | 2017-08-31 09:09 | NUR ---
MEDICATION ADMINISTERED ORDERED. PT TOLERATED WELL.
--- NOTE | 2017-08-31 10:05 | NUR ---
PT PULLED OUT NG TUBE. C/O DISCOMFORT IN RIGHT NARE S/P PULLING OUT NGT. NO ACUTE DISTRESS NOTED AT THIS TIME. DR. GARZA MADE AWARE.
--- NOTE | 2017-08-31 10:30 | NUR ---
PT SEEN BY DR. GARZA AT BEDSIDE. WILL FOLLOW UP ON ORDERS.
--- NOTE | 2017-08-31 10:50 | NUR ---
HEMODIALYSIS COMPLETED. PT TOLERATED WELL. VITAL SIGNS STABLE. PER DIALYSIS NURSE, OUTPUT WAS 2.2 L.
--- NOTE | 2017-08-31 11:15 | NUR ---
PT PASSED BEDSIDE SWALLOW EVAL. CHARGE NURSE AT BEDSIDE. NO S/SX OF ACUTE DISTRESS NOTED.
--- NOTE | 2017-08-31 11:16 | NUR ---
DECREASED FIO2 TO 5L AND SPUTUM COLLECTIONS NEEDS TO BE REDONE, INSTRUCTED PT TO GIVEN SPUTUM SAMPLE JENNIFER SWANSON NOTIFIED OF CHANGES TO FIO2
--- NOTE | 2017-08-31 11:51 | NUR ---
PT IS SLEEPING COMFORTABLY AT THIS TIME. VITAL SIGNS STABLE. SAFETY MEASURES ENSURED. WILL CONTINUE TO MONITOR.
[2017-08-31] MEDS: DEXT 5% /NACL 0.9% 1,000 ML IV SCH (12:55)
--- NOTE | 2017-08-31 13:00 | NUR ---
PT SEEN BY DR. SANCHEZ. WILL FOLLOW UP ON ORDERS.
--- NOTE | 2017-08-31 13:30 | NUR ---
DR. HOANG IN TO SEE PT. WILL FOLLOW UP WITH NEW ORDERS.
[2017-08-31] MEDS ORDERED: LEVOFLOXACIN 500 MG/D5W PREMIX 100 ML IV SCH (14:00)
--- NOTE | 2017-08-31 15:15 | NUR ---
PT SEEN AND EXAMINED BY DR. KOVACS. WILL FOLLOW UP ON ORDERS.
--- NOTE | 2017-08-31 17:20 | NUR ---
DINNER SERVED. NO PROBLEM CHEWING OR DRINKING FLUIDS. VITAL SIGNS STABLE. NO SIGNS OF DISTRESS NOTED.
--- NOTE | 2017-08-31 17:22 | NUR ---
SEEN AND EXAMINED BY DR. KAYLAN Acosta WILL FOLLOW UP ON ORDERS.
--- NOTE | 2017-08-31 19:25 | NUR ---
REPORT GIVEN TO CABLE ENGINEER RN FOR CONTINUITY OF CARE. PT IS IN STABLE CONDITION.
--- NOTE | 2017-08-31 19:29 | NUR ---
RECEIVED REPORT FROM DAY NURSE NO ACUTE DISTRESS WILL CONTINUE TO OBSERVE.
--- NOTE | 2017-08-31 19:47 | NUR ---
PT ASLEEP, AROUSABLE DENIES PAIN @ THIS TIME. ALERT TO NAME AND PLACE. ABLE TO TURN AND MOVE ALL PERIPHERAL EXTREMITIES. LUNGS RHONCHI UPPER AND LOWER LOBES. S1 S2 PRESENT TRACE EDEMA NOTED. ABD SOFT NON DISTENDED OBESE. F/C IN PLACE ANUSHA URINE. SKIN INTACT NO S/S OF DISTRESS NOTED. WILL CONTINUE TO OBSERVE.
--- NOTE | 2017-08-31 22:15 | NUR ---
PT ASLEEP IN BED, VSS NO S/S OF ACUTE DISTRESS NOTED. WILL CONTINUE TO MONITOR.
[2017-09-01] VITALS: BP 105/46
--- NOTE | 2017-09-01 00:20 | NUR ---
PT WAKING UP THROUGHOUT THE NIGHT; SLEEP APNEA NOTED. PT ON OXIMIZER @ 4L. VITAL SIGNS STABLE NO ACUTE DISTRESS WILL CONTINUE TO MONITOR.
[2017-09-01 04:00] VITALS: BP 90/63
--- NOTE | 2017-09-01 04:00 | NUR ---
PT ASLEEP NO ACUTE DISTRESS. WILL CONTINUE TO OBSERVE.
[2017-09-01 06:17] LABS: BASOPHILS % (AUTO) 0.4 % (0.0-2.0); EOSINOPHILS # (AUTO) 0.4 K/uL (0-0.4); EOSINOPHILS % (AUTO) 5.8 % (0.0-4.0); HEMATOCRIT 25.9 % (36-52); HEMOGLOBIN 8.3 g/dL (12.0-18.0); LYMPHOCYTES # (AUTO) 1.1 K/uL (2.0-11.5); LYMPHOCYTES % (AUTO) 15.8 % (20.5-51.1); MEAN CORPUSCULAR HEMOGLOBIN 30 pg (27-31); MEAN CORPUSCULAR HGB CONC 32 g/dL (33-37); MEAN CORPUSCULAR VOLUME 92.9 fL (80-94); MONOCYTES # (AUTO) 0.4 K/uL (0.8-1.0); MONOCYTES % (AUTO) 6.1 % (1.7-9.3); NEUTROPHILS # (AUTO) 4.9 K/uL (1.8-7.7); NEUTROPHILS % (AUTO) 71.9 % (42.2-75.2); PLATELET COUNT (AUTO) 149 K/uL (140-450); RED BLOOD CELL COUNT(AUTO) 2.79 MIL/uL (4.20-6.10); RED CELL DISTRIBUTION WIDTH 18.2 % (11.6-13.7); WHITE BLOOD COUNT (AUTO) 6.8 K/uL (4.8-10.8)
[2017-09-01] MEDS: BLOOD GLUCOSE MONITORING 1 DEV DEV FS SCH ×4 (06:30→21:07)
--- NOTE | 2017-09-01 07:10 | NUR ---
RECEIVED REPORT FROM NEIDA CHAIREZ RN. PT IS A&0X4 AND FOLLOWS COMMANDS. PT IS ABLE TO MOVE ALL EXTREMITIES AND REPOSITIONS OFTEN IN BED. PERRL. PT SPEECH IS CLEAR AND COHERENT. S1S2 HEARD. BREATH SOUNDS ARE DIMINISHED IN ALL LOBES. PT IS ON 4L OXYMIZER. PTS ABDOMEN IS SOFT, NON-TENDER WITH BOWEL SOUNDS PRESENT AND ACTIVE IN ALL 4 QUADRANTS. PT HAS A LAGOS CATHETER WITH YELLOW URINE IN DRAINAGE BAG. PT HAS REDDENED AREA ON ABDOMEN AND IN GROIN AREA; AREA IS DRY WITH INTRADRY DRESSING IN PLACE. PT HAS AV HEMODIALYSIS SHUNT IN LEFT FOREARM WITH SIGNS POSTED FOR NO BP/BLOOD DRAW FROM THE EXTREMITY. PT HAS RIGHT FOREARM 20 HARSHA IV AND A LEFT CHEST, 22 HARSHA, WITH D5/NS RUNNING 30ML/ HR. PT HAS SCDS ON. BED IS IN LOWEST POSITION, BED LOCK AND ALARM ON, CALL LIGHT WITHIN REACH.
[2017-09-01 07:26] LABS: CARBON DIOXIDE 28.8 mmol/L (21-32); POTASSIUM 3.8 mmol/L (3.5-5.1)
[2017-09-01 07:27] LABS: CREATININE 7.5 mg/dL (0.7-1.3)
--- NOTE | 2017-09-01 07:39 | NUR ---
REPORT GIVEN TO DAY NURSE ORDERS ENDORSED.
[2017-09-01 08:00] VITALS: BP 141/73
[2017-09-01] MEDS: PANTOPRAZOLE 40 MG INJ VIAL IVP SCH (09:05)
[2017-09-01] MEDS: EPOETIN ALFA 10,000 UNITS/ML VIAL SUBQ SCH (09:09)
[2017-09-01] MEDS ORDERED: PROBIOTIC SCREEN 1 EA MISC MC PRN (10:00)
--- NOTE | 2017-09-01 11:27 | NUR ---
PT HAVING SWALLOW EVALUATION AT BEDSIDE.
--- NOTE | 2017-09-01 11:31 | NUR ---
DIRECTOR OF MANUFACTURING OPERATIONS NOTE [id number] Bedside swallow evaluation completed following clearance by JENNIFER Taylor. Please refer to DIRECTOR OF MANUFACTURING OPERATIONS evaluation for full report. Recommend: 1) Mech soft-chopped texture + thin liquids for all PO intake. 2) Strict aspiration precautions as noted: -Upright at 90 during and 20 min after intake. -Small bites/sips -Slow rate -Alternate bites/sips 3) Stop if pulmonary distress noted 4) DIRECTOR OF MANUFACTURING OPERATIONS to follow 1x/wk x1wk for diet toleration and advancement as approrpriate. G8996: CJ G8997: CI Swallow NOMS 3
[2017-09-01 12:00] VITALS: BP 114/65
[2017-09-01] MEDS: PIPER/TAZO 2.25GM/D5W PREMIX 50 ML IV SCH ×2 (12:47→21:06)
--- NOTE | 2017-09-01 12:54 | NUR ---
PT EATING LUNCH. PT DENIES ALL PAIN. HOB ELEVATED FOR COMFORT AND SAFETY DURING LUNCH. PT'S CALL LIGHT WITHIN REACH, BED IN LOWEST POSITION AND BEDLOCK ON.
--- NOTE | 2017-09-01 13:15 | NUR ---
Needle Punch Machine Operator Notes: I Contacted [facility] ([facility]) I spoke to Anna facility/staff to discuss and confirmed patient's Information. Per [facility] Patient has been under their care for about a year and a half, has a POLTS on Chart with his Brother Julio Townsend as his primary health care decision maker. Per [facility] patient is on a 7 days skilled bed hold and patient is welcome to go back to facility after his discharge from [facility]. I thanked Anna for her assistance and information, give her my contact number and I ended the call.
--- NOTE | 2017-09-01 13:28 | NUR ---
CM NOTE INITIAL REVIEW FAXED TO [facility] [phone] MARIELLA # [phone]
--- NOTE | 2017-09-01 14:39 | NUR ---
CALLED [facility] TO NOTIFY OF HEMODIALYSIS ORDER FOR 09/02/17
[2017-09-01 16:00] VITALS: BP 146/55
--- NOTE | 2017-09-01 16:30 | NUR ---
P.T. AT BEDSIDE TO EVALUATE PATIENT
--- NOTE | 2017-09-01 17:15 | NUR ---
PT HAS A SCRATCH ON LEFT BUTTOCK, BLANCHABLE, SURROUNDING AREAS PINK AND DRY, CLOSED WOUND. PT DENIES PAIN. DRESSING IN PLACE, INTACT AND DRY. PICTURE TAKEN.
--- NOTE | 2017-09-01 17:47 | NUR ---
BED BATH GIVEN AND LAGOS CARE. PT ABLE TO ASSIST IN TURNING AND BATHING. PT'S BED LEFT IN LOWEST POSITION, BED LOCK AND ALARM ON. CALL LIGHT WITHIN REACH.
--- NOTE | 2017-09-01 19:15 | NUR ---
GAVE REPORT TO NIGHT RN FOR CONTINUATION OF CARE.
--- NOTE | 2017-09-01 19:40 | NUR ---
RECEIVED REPORT AT PT BEDSIDE FROM ICU TOP LIFT SCOURER, FOR CONTINUITY OF CARE. PATIENT IS AWAKE, A/OX4 ON 4L OF O2 VIA OXIMIZER. ABLE TO MAKE NEEDS KNOWN, ABLE TO FOLLOW COMMANDS. ERYTHEMA IN ABDOMINAL FOLDS AND GROIN AREA. DRESSING TO LEFT BUTTOCK COVERING SCRATCH, DRY AND INTACT. PT HAS LAGOS IN PLACE. PATIENT HAS PERIPHERAL IV SITE TO RIGHT AC 20G, AND A 22G IV TO LEFT CHEST SALINE LOCKED, BOTH ASYMPTOMATIC, INTACT, PATENT. RESPIRATIONS EVEN AND UNLABORED WITH DIMINISHED BREATH SOUNDS. DISCUSSED PLAN OF CARE WITH PT, PT VERBALIZED UNDERSTANDING. VITAL SIGNS WNL. PT STABLE, NO SIGNS OF DISTRESS NOTED AT THIS TIME. BED IN LOWEST POSITION, CALL LIGHT WITHIN REACH. WILL CONTINUE TO MONITOR.
[2017-09-01 19:57] VITALS: BP 144/71
--- NOTE | 2017-09-01 20:14 | NUR ---
RECEIVED PATIENT ON 4L OXYMIZER. O2 SAT 100%. NO RESPIRATORY DISTRESS NOTED AT THIS TIME. WILL CONTINUE TO MONITOR.
[2017-09-01] MEDS: ATORVASTATIN 20 MG TAB PO SCH (21:06)
--- NOTE | 2017-09-01 21:10 | NUR ---
ADMINISTERED SCHEDULED MEDICATIONS, PT TOLERATED WELL. NO INSULIN COVERAGE NEEDED, BLOOD SUGAR IS 98. PT STABLE, NO SIGNS OF DISTRESS NOTED AT THIS TIME. WILL CONTINUE TO MONITOR.
--- NOTE | 2017-09-01 21:50 | NUR ---
RECEIVED FROM ICU PT. IN [facility] AWAKE AND ALERT. VERBALIZES SIMPLE NEEDS. ON 02 AT 4LPM/NC WITH OXYMIZER. PT. IS ASSIST WITH ADLS. MORBIDLY OBESE MALE WITH LAGOS CATHETER IN PLACE AND REDNESS TO BUTTOCK. DX. OF ARF,SEPSIS AND RESPIRATORY FAILURE. HEMODIALYSIS PT. WITH AV SHUNT LEFT ARM/+ BRUIT. IVF SITE TO RFA#20 AND LEFT LOWER CHEST #22. WITH D5NS AT 30 ML/HOUR. ISOLATION PRECAUTION OBSERVED RT MDRO/DIRECTOR OF TRAINING URINE. CALL LIGHT WITH IN REACH, ORIENTED TO ROOM AND CARE PLANS FOR THE NIGHT EXPLAINED TO HIM. TELEMETRY MONITORING.
--- NOTE | 2017-09-01 21:55 | NUR ---
PT LEFT ICU UNIT AT 21:40 IN STABLE CONDITION TO TELEMETRY UNIT ROOM 114, TOOK ALL PERSONAL BELONGINGS WITH HIM. TELE MONITOR ATTACHED, AND OXIMIZER CONNECTED TO O2 AT 4L. PT TRANSFERRED TO BED BY 4 RN'S USING A SLIDING BOARD. ENDORSED PT TO JENNIFER CORBIN.
--- NOTE | 2017-09-01 22:10 | NUR ---
CALLED PT BROTHER MULTIPLE TIMES TO TELL HIM PT WAS TRANSFERRED. HE DID NOT ANSWER, LEFT A MESSAGE FOR HIM.
[2017-09-02 00:35] VITALS: BP 110/72
--- NOTE | 2017-09-02 00:38 | NUR ---
PT. SLEEPING . TURNED TO SIDE WITH PILLLOW SUPPORT. NO SOB. TELEMETRY MONITORING. CALL LIGHT WITH IN REACH AND ABLE TO USE IT FOR HELP.
--- NOTE | 2017-09-02 00:59 | NUR ---
PT. ENDORSED TO ANOTHER RN /JAVIER FOR CONTINUITY OF CARE. SLEEPING. WAKES UP EASILY WHEN TOUCHED AND ABLE TO VERBALIZE NEEDS. TELEMETRY MONITORING.
--- NOTE | 2017-09-02 01:00 | NUR ---
RECEIVED PT BACK, NOTHING HAS CHANGED. PT STILL STABLE, NO SIGNS OF DISTRESS NOTED.
[2017-09-02 04:00] VITALS: BP 116/64
--- NOTE | 2017-09-02 04:00 | NUR ---
VITAL SIGNS WNL. PT STABLE, NO SIGNS OF DISTRESS NOTED AT THIS TIME. BED IN LOWEST POSITION, CALL LIGHT WITHIN REACH. WILL CONTINUE TO MONITOR.
[2017-09-02] MEDS: PIPER/TAZO 2.25GM/D5W PREMIX 50 ML IV SCH ×3 (04:37→21:09)
[2017-09-02] MEDS: BLOOD GLUCOSE MONITORING 1 DEV DEV FS SCH ×4 (06:34→21:09)
--- NOTE | 2017-09-02 06:35 | NUR ---
BLOOD SUGAR 78, NO INSULIN COVERAGE NEEDED. PT STABLE, NO SIGNS OF DISTRESS NOTED AT THIS TIME. BED IN LOWEST POSITION, CALL LIGHT WITHIN REACH. WILL CONTINUE TO MONITOR.
[2017-09-02 06:55] LABS: BASOPHILS % (AUTO) 0.5 % (0.0-2.0); EOSINOPHILS # (AUTO) 0.4 K/uL (0-0.4); EOSINOPHILS % (AUTO) 7.5 % (0.0-4.0); HEMATOCRIT 24.6 % (36-52); HEMOGLOBIN 7.8 g/dL (12.0-18.0); LYMPHOCYTES # (AUTO) 0.8 K/uL (2.0-11.5); LYMPHOCYTES % (AUTO) 14.3 % (20.5-51.1); MEAN CORPUSCULAR HEMOGLOBIN 30 pg (27-31); MEAN CORPUSCULAR HGB CONC 32 g/dL (33-37); MEAN CORPUSCULAR VOLUME 92.9 fL (80-94); MONOCYTES # (AUTO) 0.3 K/uL (0.8-1.0); NEUTROPHILS # (AUTO) 4.3 K/uL (1.8-7.7); NEUTROPHILS % (AUTO) 72.7 % (42.2-75.2); PLATELET COUNT (AUTO) 135 K/uL (140-450); RED BLOOD CELL COUNT(AUTO) 2.65 MIL/uL (4.20-6.10); RED CELL DISTRIBUTION WIDTH 17.6 % (11.6-13.7); WHITE BLOOD COUNT (AUTO) 5.9 K/uL (4.8-10.8)
[2017-09-02 07:13] LABS: ANION GAP 13.9 (8-16); POTASSIUM 3.9 mmol/L (3.5-5.1); TOTAL BILIRUBIN 0.5 mg/dL (0.0-1.0)
[2017-09-02 07:23] LABS: CREATININE 9.5 mg/dL (0.7-1.3)
--- NOTE | 2017-09-02 07:30 | NUR ---
RECEIVED REPORT FROM PM NURSE, PT AWAKE, ALERT. ON O2 OXYMIZER 4 L/MIN. NO S/S OF RESPIRATORY DISTRESS NOTED. PT HAS IC TO RIGHT AC AND LEFT CHEST, SITE INTACT AND PATENT. PT ALSO HAS IV SHUNT TO LEFT ARM , TOLD PT DO NOT ALLOW IV OR BP TO LEFT ARM, PT VERBALIZED UNDERSTANDING. REORIENTED PT ENVIRONMENT, CALL LIGHT IN REACH,WILL CONTINUE TO MONITOR.
--- NOTE | 2017-09-02 07:31 | NUR ---
ENDORSED PT TO DAY SHIFT RN FOR CONTINUITY OF CARE. PT IN STABLE CONDITION.
[2017-09-02 08:00] VITALS: BP 108/53
--- NOTE | 2017-09-02 08:00 | NUR ---
PT STARTED DIALYSIS AT THIS TIME.
[2017-09-02] MEDS: PANTOPRAZOLE 40 MG INJ VIAL IVP SCH (09:00)
[2017-09-02] MEDS: LACTOBACILLUS RHAMNOSUS GG 1 EACH CAP PO SCH (09:00)
[2017-09-02] MEDS: CARVEDILOL 6.25 MG TAB PO SCH (09:00)
--- NOTE | 2017-09-02 09:00 | NUR ---
DUE MEDS NOT GIVEN DUE TO PT ON DIALYSIS AT THIS MOMENT.
--- NOTE | 2017-09-02 11:00 | NUR ---
DIALYSIS DONE, TOTAL OUTPUT 2 L. PT STATED HE FEELS FINE AT THIS MOMENT.
[2017-09-02 12:00] VITALS: BP 118/59
--- NOTE | 2017-09-02 12:25 | NUR ---
LUNCH TRAY SERVED, PT HAS A GOOD APPETITE.
[2017-09-02] MEDS ORDERED: LEVOFLOXACIN 500 MG/D5W PREMIX 100 ML IV SCH (13:00)
--- NOTE | 2017-09-02 14:39 | NUR ---
CALLED [facility] AND SPOKE WITH ADMISSIONS AND INFORMED THAT PT TO BE DISCHARGED TODAY AND WILL CONTINUE WITH 10 DAYS IV ZOSYN. INFORMATION FAXED TO [phone] AND PHONE FOR FACILITY IS [phone]. CALLED AND SPOKE WITH MARIELLA AT [facility] AND OBTAINED AUTH# [id number] FOR TRANSPORT. CALLED [facility] AND SET UP GURNEY TRANSPORT FOR 1700. WHEN ROOM# AT [facility] AVAILABLE WILL CALL BACK.
--- NOTE | 2017-09-02 14:45 | NUR ---
09/02/17 RD FOLLOW UP COMPLETED PLEASE REFER TO NUTRITION PROGRESS NOTE UNDER CARE ACTIVITY FOR ESTIMATED NUTRITION NEEDS. RD RECOMMENDATIONS: 1. RECOMMEND MECHANICAL SOFT, CCHO 60 GM, AND RENAL DIET. 2. PROVIDE NUTRITIONAL EDUCATION PERTAINING TO ESRD. 3. ENCOURAGE INCREASED PO INTAKE 4. RD WILL F/U 3-5 DAYS; MEDIUM RISK CHARO PERAZA RD Addendum: 09/02/17 at [address] WILL F/U 2-3 DAYS, HIGH RISK
--- NOTE | 2017-09-02 14:51 | NUR ---
CALL RECEIVED FROM JG AT [facility] AND PT CAN GO TO ROOM 101C. INFORMED HER THAT PT IS SCHEDULED FOR [facility] TRAFF[facility] CONTROLLER AT 1700. [employer] [facility] [phone] INFORMED THAT PT WILL GO TO ROOM 101C
--- NOTE | 2017-09-02 15:11 | NUR ---
CALLED [facility] AND CHANGED TUBE BUILDER TO WILL CALL.
[2017-09-02 16:00] VITALS: BP 105/53
--- NOTE | 2017-09-02 17:00 | NUR ---
CALLED US DEPARTMENT FOR LEFT ARM US REQUEST.
--- NOTE | 2017-09-02 18:00 | NUR ---
PT SITTING IN BED TO HAVE DINNER, NO S/S OF RESPIRATORY DISTRESS OR DISCOMFORT NOTED.
--- NOTE | 2017-09-02 19:35 | NUR ---
RECEIVED PT FROM DEIDRE RN PT IS AAOX4 ON BED REST LEFT UA EDEMATOUS AND ALSO AV SHUNT, PT DOESNOT COMPLAINT OF ANY IDSCOMFORT AT THIS TIME INITIAL ASSESSMENT DONE
[2017-09-02 20:00] VITALS: BP 124/72
--- NOTE | 2017-09-02 20:11 | NUR ---
RECEIVED REPORT FROM RADHA, PATIENT RESTING IN BED, AWAKE ALERT ORIENTED X3, NO S/S OF DISTRESS NOTED, RESPIRATION EVEN AND UNLABORED, ON 2L OXYMIZER. LT ARM SWELLING, AV SHUNT NOTED ON LT ARM, BRUIT/ THRILL. LAGOS IN PLACE, DRAINING URINE BY GRAVITY. PLAN OF CARE DISCUSSED, PATIENT VERBALIZED UNDERSTANDING. CALL LIGHT WITHIN REACH, SAFETY MEASURE ENSURED, WILL CONTINUE TO MONITOR.
[2017-09-02] MEDS: ATORVASTATIN 20 MG TAB PO SCH (21:08)
--- NOTE | 2017-09-02 21:15 | NUR ---
NEW IV 22G STARTED ON RT HAND. PATIENT TOLERATED WELL. OLD IV TAKEN OUT, TIP INTACT. NO ACTIVE BLEEDING NOTED AT THE SITE. WILL CONTINUE TO MONITOR.
--- NOTE | 2017-09-02 21:40 | NUR ---
DUE MEDICATION GIVEN, PATIENT TOLERATED WELL. NO S/S OF DISTRESS NOTED, RESPIRATION EVEN AND UNLABORED, LT ARM IS ELEVATED ON THE PILLOW. REPOSITIONED THE PATIENT WITH THE AUTOMOTIVE TECHNICIAN, CALL LIGHT WITHIN REACH, SAFETY MEASURE ENSURED, WILL CONTINUE TO MONITOR.
[2017-09-03] VITALS: BP 118/59
--- NOTE | 2017-09-03 00:05 | NUR ---
PATIENT MADE SMALL BOWEL MOVEMENT. CLEANED THE PATIENT AND REPOSITIONED THE PATIENT WITH THE PAN PULLER. CALL LIGHT WITHIN REACH, SAFETY MEASURE ENSURED, WILL CONTINUE TO MONITOR.
--- NOTE | 2017-09-03 02:10 | NUR ---
NO CHANGE IN CONDITION, PATIENT IS SLEEPING, NO S/S OF DISTRESS NOTED, RESPIRATION EVEN AND UNLABORED, ON 2L OXYMIZER. CALL LIGHT WITHIN REACH, SAFETY MEASURE ENSURED, WILL CONTINUE TO MONITOR.
[2017-09-03 04:00] VITALS: BP 134/63
--- NOTE | 2017-09-03 04:19 | NUR ---
VITAL SIGNS STABLE, NO S/S OF DISTRESS NOTED, RESPIRATION EVEN AND UNLABORED, ON 2L OXYMIZER. CALL LIGHT WITHIN REACH, SAFETY MEASURE ENSURED, WILL CONTINUE TO MONITOR.
[2017-09-03] MEDS: PIPER/TAZO 2.25GM/D5W PREMIX 50 ML IV SCH ×3 (04:36→22:41)
--- NOTE | 2017-09-03 05:08 | NUR ---
ASKED WHAT TIME IS THE [place] DUE, INFORMED PATIENT MEDICATION DUE AT 0900 AM. PATIENT IS SLEEPING AT THIS TIME. Addendum: 09/03/17 at 0555 by Neville Lewis RN WRONG PATIENT
[2017-09-03] MEDS: BLOOD GLUCOSE MONITORING 1 DEV DEV FS SCH ×4 (06:38→21:07)
--- NOTE | 2017-09-03 07:17 | NUR ---
ENDORSED PLAN OF CARE TO DAY SHIFT, PATIENT IS IN STABLE CONDITION.
--- NOTE | 2017-09-03 07:30 | NUR ---
RECEIVED REPORT FROM PHOTONICS ENGINEERING TECHNOLOGIST NURSE, PATIENT RESTING IN BED, AWAKE, ALERT, OX3, NO S/S OF DISTRESS NOTED, RESPIRATION EVEN AND UNLABORED, ON 2L OXYMIZER. LEFT ARM SWELLING NOTED, AV SHUNT NOTED ON LEFT ARM, BRUIT/ THRILL NOTED. LAGOS IN PLACE, DRAINING YELLOW URINE WITH SEDIMENTS. PLAN OF CARE DISCUSSED, PATIENT VERBALIZED UNDERSTANDING. CALL LIGHT WITHIN REACH, SAFETY MEASURE ENSURED, WILL CONTINUE TO MONITOR.
[2017-09-03 08:00] VITALS: BP 133/73
--- NOTE | 2017-09-03 08:25 | NUR ---
PAGED DR SANCHEZ'S EXCHANGE FOR CLARIFICATION OF HEMODIALYSIS ORDER, SALESPERSON PIANOS AND ORGANS STATED DR POSADAS WILL CALL BACK.
[2017-09-03] MEDS: PANTOPRAZOLE 40 MG INJ VIAL IVP SCH (09:13)
[2017-09-03] MEDS: LACTOBACILLUS RHAMNOSUS GG 1 EACH CAP PO SCH (09:13)
[2017-09-03] MEDS: CARVEDILOL 6.25 MG TAB PO SCH (09:14)
--- NOTE | 2017-09-03 09:20 | NUR ---
PAGED DR KOVACS, WAITING FOR CALL BACK.
[2017-09-03] MEDS: EPOETIN ALFA 10,000 UNITS/ML VIAL SUBQ SCH (09:23)
--- NOTE | 2017-09-03 09:30 | NUR ---
P.T. NOTES PER CHART REVIEW PT HAD (+) THROMBOPHLEBITIS TO LT SUPERFICIAL CEPHALIC VEIN WHEN ASKED RN NO ORDERS HAS BEEN GIVEN TO ADRESS THE FINDING RN AND CHARGE NURSE MADE AWARE WILL PUT P.T. TX ON HOLD UNTIL NEW FINDINGS HAS BEEN ADRESSED. RN AGREEABLE. PT REPORTS OF PAIN INTO THE LEFT ARM. PVE
[2017-09-03] MEDS ORDERED: PIPE50SO5 IV (11:08)
[2017-09-03] MEDS ORDERED: ATOR20TA PO (11:09)
[2017-09-03] MEDS ORDERED: CARV6.25 PO (11:09)
--- NOTE | 2017-09-03 11:53 | NUR ---
[address] PAVON AND HE STATED THAT PT CAN DISCHARGE AND GO STRAIGHT TO [facility]. DR PAVON HAS TALKED TO DIALYSIS UNIT AND THEY WILL SCHEDULE PT FOR DIALYSIS WHEN ARRANGEMENTS CAN BE MADE FOR TRANSPORT. CALLED [facility] [phone] AND SCHEDULED HEAT READER TO GO TO [facility] IS 1330. CALL PLACED TO [facility] [phone] AND SPOKE WITH JG IN ADMISSIONS AND INFORMED HER THAT PT TO BE PICKED UP FROM [facility] AT 1330 AND WILL GO FOR DIALYSIS. JG STATED THAT SHE WILL CONTACT THE DIALYSIS UNIT FOR ESTIMATED TIME OF COMPLETION OF DIALYSIS AND SHE WILL ARRANGE FOR PT TO BE PICKED UP BY HIS [facility]. CALLED [facility] [phone] AND SPOKE WITH DELFINO AND PROVIDED HER WITH INFORMATION REGARDING ARRANGEMENTS MADE FOR PT TO GO TO DIALYSIS THEN TO [facility].
[2017-09-03 12:00] VITALS: BP 122/67
--- NOTE | 2017-09-03 12:18 | NUR ---
CLINICAL UPDATE FAXED TO [facility] AND INFORMED OF PT BEING DISCHARGED TODAY BACK TO [facility]
--- NOTE | 2017-09-03 13:15 | NUR ---
CALLED [facility] FOR REPORT, REPORT GIVEN TO NIMCO, PT GOING TO 101B, ACCEPTING MD NERI.
--- NOTE | 2017-09-03 13:43 | NUR ---
TRANSPORT IS HERE TO [facility], HOWEVER, PT NEEDS BARIATRIC GURNEY. CALLED RUBBER ROLLER GRINDER GAGAN WHO STATED TO CALL MD FOR PT TO GET HD IN THE HOSPITAL.
--- NOTE | 2017-09-03 13:50 | NUR ---
PAGED DR SHAHID FOR DIALYSIS ORDER.
--- NOTE | 2017-09-03 14:20 | NUR ---
SPOKE WITH CHARGE NURSE DAVIS IF WE CAN USE DR LOVETT'S HD ORDER ENTERED YESTERDAY FOR TODAY. DAVIS SAID IT'S OK, CALLED BOWERS AND MADE HER AWARE OF THE HD ORDER.
--- NOTE | 2017-09-03 14:50 | NUR ---
DR LOVETT CALLED BACK, OK TO USE THE HD ORDER THAT HE ENTERED YESTERDAY.
--- NOTE | 2017-09-03 14:53 | NUR ---
MARKETING PLANNING MANAGER NOTE [phone] S: Pt seen at bedside, awake and alert. No c/o pain. Pt cooperative w/all tasks, stated he will be leaving soon for dialysis center. O: Pt seen for MARKETING PLANNING MANAGER POC, upright at 70 in bed. MARKETING PLANNING MANAGER reviewed safe swallow strategies w/pt and current diet status (mech soft/thin liquids). Pt demonstrated safe, strong swallow on mech soft snack, self-administered, w/no overt s/sx of aspiration noted. A: WFL swallow, pt tolerating mech soft/thin liquids w/no overt s/sx of aspiration. P: Recommend d/c from skilled ST services 2/2 goals met. G8996: CJ G8997: CI G8998: CI Swallow NOMS 5
--- NOTE | 2017-09-03 15:00 | NUR ---
CALLED [facility], MADE NURSE NIMCO AWARE OF THE CHANGE OF PLAN.
[2017-09-03 15:47] LABS: BASOPHILS % (AUTO) 0.4 % (0.0-2.0); EOSINOPHILS # (AUTO) 0.5 K/uL (0-0.4); EOSINOPHILS % (AUTO) 7.2 % (0.0-4.0); HEMATOCRIT 25.1 % (36-52); LYMPHOCYTES # (AUTO) 0.9 K/uL (2.0-11.5); MEAN CORPUSCULAR HEMOGLOBIN 30 pg (27-31); MEAN CORPUSCULAR HGB CONC 32 g/dL (33-37); MEAN CORPUSCULAR VOLUME 93.5 fL (80-94); MONOCYTES # (AUTO) 0.3 K/uL (0.8-1.0); MONOCYTES % (AUTO) 4.6 % (1.7-9.3); NEUTROPHILS # (AUTO) 4.9 K/uL (1.8-7.7); NEUTROPHILS % (AUTO) 74.8 % (42.2-75.2); PLATELET COUNT (AUTO) 123 K/uL (140-450); RED BLOOD CELL COUNT(AUTO) 2.69 MIL/uL (4.20-6.10); RED CELL DISTRIBUTION WIDTH 17.5 % (11.6-13.7); WHITE BLOOD COUNT (AUTO) 6.6 K/uL (4.8-10.8)
[2017-09-03 16:00] VITALS: BP 129/60
[2017-09-03 16:00] LABS: ANION GAP 13.9 (8-16); CARBON DIOXIDE 30.3 mmol/L (21-32); POTASSIUM 4.2 mmol/L (3.5-5.1)
[2017-09-03 16:03] LABS: CREATININE 8.4 mg/dL (0.7-1.3)
--- NOTE | 2017-09-03 19:34 | NUR ---
ENDORSED PT TO MACHINE MAINTENANCE REPAIRER RN. PT IN STABLE CONDITION.
--- NOTE | 2017-09-03 19:35 | NUR ---
RECEIVED PT FROM CHANTELLE RN PT AAOX4 ON BED REST ON DIALYSIS ON LEFT ARMS; DIALYSIS STARTED AT 1920 NOT DISTRESS NOTED LAGOS CATH DRAINING WELL ON OXIMIZER 2 LTS INITIAL ASSESSMENT DONE
[2017-09-03 20:00] VITALS: BP 118/73
--- NOTE | 2017-09-03 21:00 | NUR ---
PT ON DIALYSIS O2 SAT DROP TO 86 PT SLEEPING AND DIALYSIS NURSE INCREASE THE 02 TO 6 LTS AND WEAK UP THE PT AND O2 INCREASE TO 97% DR BOGGS; WAS CALLED AND NOTIFY PT CONDITION
[2017-09-03] MEDS: ATORVASTATIN 20 MG TAB PO SCH (21:05)
--- NOTE | 2017-09-03 22:20 | NUR ---
DIALYSIS END AND 3.8 LTS OUT PT ON STABLE CONDITION WAITING FOR [facility] TO PICK HIM UP
--- NOTE | 2017-09-03 23:10 | NUR ---
[facility] EMBOSSER APPRENTICE THE PT DISCHARGE TO [facility]. PT ON STABLE CONDITION
--- NOTE | 2017-09-09 12:55 | NUR ---
SOCIAL SERVICE NOTE: I FAXED DISCHARGE SUMMARY TO [facility] , MARLENI WOLFF PH#
== END 2017-09-03 23:20 | disposition home or self-care (01) | DRG 720 ==
LOC: MED 06:30 → MIC 09:45 → MTU 09-01 21:42
PROVIDERS: ADMIT Hospitalist; ATTEND Hospitalist
PROC: 5A1945Z Respiratory Ventilation, 24-96 Consecutive Hours (ICD-10-PCS; principal; 2017-08-29)
PROC: 0BH17EZ Insertion of Endotracheal Airway into Trachea, Via Natural or Artificial Opening (ICD-10-PCS; 2017-08-29)
PROC: 5A1D70Z Performance of Urinary Filtration, Intermittent, Less than 6 Hours Per Day (ICD-10-PCS; 2017-08-29)
PROC: 5A1D70Z Performance of Urinary Filtration, Intermittent, Less than 6 Hours Per Day (ICD-10-PCS; 2017-08-31)
PROC: 5A1D70Z Performance of Urinary Filtration, Intermittent, Less than 6 Hours Per Day (ICD-10-PCS; 2017-09-02)
PROC: 5A1D70Z Performance of Urinary Filtration, Intermittent, Less than 6 Hours Per Day (ICD-10-PCS; 2017-09-03)
DX: A41.9 Sepsis, unspecified organism (principal); J96.21 Acute and chronic respiratory failure with hypoxia; R65.21 Severe sepsis with septic shock; J18.9 Pneumonia, unspecified organism; N18.6 End stage renal disease; E11.22 Type 2 diabetes mellitus with diabetic chronic kidney disease; I13.11 Hypertensive heart and chronic kidney disease without heart failure, with stage 5 chronic kidney disease, or end stage renal disease; J44.0 Chronic obstructive pulmonary disease with (acute) lower respiratory infection; J44.1 Chronic obstructive pulmonary disease with (acute) exacerbation; Z99.2 Dependence on renal dialysis; Z68.43 Body mass index [BMI] 50.0-59.9, adult; J96.22 Acute and chronic respiratory failure with hypercapnia; E66.01 Morbid (severe) obesity due to excess calories; G47.33 Obstructive sleep apnea (adult) (pediatric); M19.90 Unspecified osteoarthritis, unspecified site; N39.0 Urinary tract infection, site not specified; Z87.442 Personal history of urinary calculi; Z87.891 Personal history of nicotine dependence; Z88.1 Allergy status to other antibiotic agents; G89.29 Other chronic pain; D63.8 Anemia in other chronic diseases classified elsewhere; Z79.4 Long term (current) use of insulin
CPT/HCPCS: 31500; 36415; 36600; 71045; 80048; 80053; 81001; 82803; 82948; 83605; 83690; 83880; 84100; 84484; 85025; 85610; 86886; 86900; 86901; 86920; 87040; 87070; 87081; 87086; 87186; 87205; 87804; 89220; 92526; 92610; 93005; 93971; 94002; 94003; 96365; 97110; 97140; 97530; 97799; 99291; C9113; J0456; J0885; J1644; J1815; J1956; J2020; J2270; J2543; J2704; J7030; J7042; J7060; P9016; P9046; Q0092